=== PATIENT | female | born 1980 | race Caucasian/White ===

== ENCOUNTER 2024-01-13 21:16 | Emergency (ER) | payer OTHER ==
[2024-01-13 21:24] VITALS: BP 97/73; PULSE 86; RESP 16; TEMP 98.1
[2024-01-13] MEDS ORDERED: IBUPROFEN 600 MG TABLET (FP) PO ONE (22:26)
[2024-01-13] MEDS: IBUPROFEN 600 MG TABLET (FP) PO ONE (22:29)
== END 2024-01-13 22:38 | disposition home or self-care (01) ==
LOC: FER 21:16
DX: S92.502A Displaced unspecified fracture of left lesser toe(s), initial encounter for closed fracture (principal); W22.03XA Walked into furniture, initial encounter
CPT/HCPCS: 73630-TC-LT; 99283-25